=== PATIENT | male | born 1980 | race American Indian/Alaskan Native ===

== ENCOUNTER 2017-02-27 10:14 | Emergency (ER) | payer MEDICARE, MEDICAID ==
[2017-02-27 10:26] VITALS: BMI 21.4
[2017-02-27 10:28] VITALS: TEMP 98.5
[2017-02-27] MEDS ORDERED: cefTRIAXone (Rocephin) 250 mg Inj IM STA (10:41)
--- NOTE | 2017-02-27 10:54 | ED PDOC ---
Arrival/HPI - General Historian: Patient - General Chief Complaint: Back Pain Time Seen by Provider: 02/27/17 10:30 - History of Present Illness Narrative History of Present Illness (Text): 02/27/17 10:51 36yo male with no PMHx who present with the complaint of lower back pain, yellowish penile discharge and dysuria x one week. Reports history of similar back pain. States he is sexually active. Denies fever, abdominal pain, urinary frequency, any other complaint. (Darius Biggs A) Past Medical History - Provider Review Nursing Documentation Reviewed: Yes - Infectious Disease Hx of Infectious Diseases: None - Reproductive Currently : No - Endocrine/Metabolic Hx Diabetes Mellitus Type 2: Yes - Musculoskeletal/Rheumatological Hx Back Pain: Yes - Psychiatric Hx Substance Use: No - Anesthesia Hx Anesthesia: No - Suicidal Assessment Feels Threatened In Home Enviroment: No Family/Social History - Physician Review Nursing Documentation Reviewed: Yes Family/Social History: Unknown Family HX Smoking Status: Never Smoked Hx Alcohol Use: No Hx Substance Use: No Allergies/Home Meds Allergies/Adverse Reactions: Allergies No Known Allergies Allergy (Verified 02/27/17 10:25) Review of Systems - Physician Review All systems were reviewed & negative as marked: Yes - Review of Systems Constitutional: Normal Eyes: Normal ENT: Normal Respiratory: Normal Cardiovascular: Normal Gastrointestinal: Normal Genitourinary Male: Dysuria, Other (Penile discharge). absent: Frequency, Hematuria Musculoskeletal: Back Pain Skin: Normal Neurological: Normal Endocrine: Normal Hemo/Lymphatic: Normal Psychiatric: Normal Physical Exam Vital Signs Reviewed: Yes Temperature: Afebrile Blood Pressure: Normal Pulse: Regular Respiratory Rate: Normal Appearance: Positive for: Well-Appearing, Non-Toxic, Comfortable Pain Distress: None Mental Status: Positive for: Alert and Oriented X 3 - Systems Exam Head: Present: Atraumatic, Normocephalic Pupils: Present: PERRL Extroacular Muscles: Present: EOMI Conjunctiva: Present: Normal Mouth: Present: Moist Mucous Membranes Neck: Present: Normal Range of Motion Respiratory/Chest: Present: Clear to Auscultation, Good Air Exchange. No: Respiratory Distress, Accessory Muscle Use Cardiovascular: Present: Regular Rate and Rhythm, Normal S1, S2. No: Murmurs Abdomen: Present: Normal Bowel Sounds. No: Tenderness, Distention, Peritoneal Signs Back: No: CVA Tenderness, Midline Tenderness, Paraspinal Tenderness, Pain with Leg Raise Upper Extremity: Present: Normal Inspection. No: Cyanosis, Edema Lower Extremity: Present: Normal Inspection. No: Edema Neurological: Present: GCS=15, CN II-XII Intact, Speech Normal Skin: Present: Warm, Dry, Normal Color. No: Rashes Psychiatric: Present: Alert, Oriented x 3, Normal Insight, Normal Concentration Vital Signs Temp Pulse Resp BP Pulse Ox 02/27/17 12:14 67 18 110/68 98 02/27/17 10:25 98.5 F 77 16 104/63 100 Medical Decision Making ED Course and Treatment: 02/27/17 11:06 I was available for consultation during PA evaluation. The chart was reviewed by me, and I agree with disposition. The documented history was done by the physician rebar worker. The documented physical exam was done by the physician rebar worker. The documented procedures were done by the physician rebar worker. (Jj Medeiros) 02/27/17 17:00 P was in ED for stated history. He was treated prophylactically for STD. Culture sent. UA negative. Advised to f/u with MR in 3 business days for result. Advised to abstain from sex, until he gets his result and if positive have his sexual partner treated before having sex. (Darius Biggs) - Lab Interpretations Lab Results: Lab Results 02/27/17 11:00: Urine Color Yellow, Urine Appearance Clear, Urine pH 6.5, Ur Specific [place] 1.020, Urine Protein Negative, Urine Glucose (UA) Negative, Urine Ketones Negative, Urine Blood Negative, Urine Nitrate Negative, Urine Bilirubin Negative, Urine Urobilinogen 1.0 H, Ur Leukocyte Esterase Negative - Medication Orders Current Medication Orders: Discontinued Medications Azithromycin (Zithromax) 1,000 mg PO STAT STA PRN Reason: Protocol Stop: 02/27/17 10:43 Last Admin: 02/27/17 11:20 Dose: 1,000 MG Ceftriaxone Sodium (Rocephin) 250 mg IM STAT STA PRN Reason: Protocol Stop: 02/27/17 10:42 Last Admin: 02/27/17 11:20 Dose: 250 MG IM Administration Charges Document 02/27/17 11:20 JOL (Rec: 02/27/17 11:59 JOL [facility] [id number]) Charges for Administration # of IM Administrations 1 Ibuprofen (Motrin Tab) 600 mg PO STAT STA Stop: 02/27/17 10:43 Last Admin: 02/27/17 11:20 Dose: 600 MG MAR Pain/Vitals Document 02/27/17 11:20 JOL (Rec: 02/27/17 11:59 JOL [facility] [id number]) Pain Reassessment Is This A Pain ReAssessment? No Sleep Is patient sleeping during reassessment? No Presence of Pain Presence of Pain No Lidocaine HCl (Lidocaine 1% (20ml)) Confirm Administered Dose 20 ml .ROUTE .STK- MED ONE Stop: 02/27/17 11:30 Last Admin: 02/27/17 11:20 Dose: 1 ML Disposition/Present on Arrival - Present on Arrival Any Indicators Present on Arrival: No History of DVT/PE: No History of Uncontrolled Diabetes: No Urinary Catheter: No History of Decub. Ulcer: No History Surgical Site Infection Following: None - Disposition Have Diagnosis and Disposition been Completed?: Yes Disposition Time: 11:40 Patient Plan: Discharge - Disposition Diagnosis: Penile discharge, Low back pain Disposition: HOME/ ROUTINE Condition: STABLE Discharge Instructions (ExitCare): Back Pain (ED) Additional Instructions: Follow up with Medical records in 3 business days for result Follow up with your doctor Return to ED for any new or worsening symptoms Prescriptions: Ibuprofen [Motrin Tab] 600 mg PO Q6 #20 tab Referrals: Cheri Cabrera MD [Primary Care Provider] - Follow up with primary
[2017-02-27] MEDS ORDERED: Lidocaine 1% Inj (20ml) ONE (11:29)
[2017-02-27 11:30] LABS: PH,URINE 6.5 (4.7-8.0); URINE BILIRUBIN NEGATIVE (NEGATIVE); URINE BLOOD NEGATIVE (NEGATIVE); URINE GLUCOSE (UA) NEGATIVE (NEGATIVE); URINE KETONE NEGATIVE (NEGATIVE); URINE LEUKOCYTE ESTERASE NEGATIVE Leu/uL (NEGATIVE); URINE PROTEIN NEGATIVE mg/dL (<30 mg/dL)
[2017-02-27 11:31] LABS: URINE APPEARANCE CLEAR (CLEAR); URINE COLOR YELLOW (YELLOW)
[2017-02-27 12:19] VITALS: BP 110/68; PULSE 67; RESP 18; O2SAT 98
== END 2017-02-27 12:23 | disposition home or self-care (01) ==
LOC: ED 10:14
DX: R36.9 Urethral discharge, unspecified (principal); M54.5 Low back pain
CPT/HCPCS: 81003; 87491; 87591; 96372; 99282; J0696